=== PATIENT | male | born 1970 | race Caucasian/White ===

== ENCOUNTER → 2018-07-06 | Outpatient (CLI) | payer BC ==
--- NOTE | 2018-07-07 13:10 | ECHOF ---
Referral Reason:R07.9 chest pain MEASUREMENTS -------- HEIGHT: 175.3 cm WEIGHT: 76.2 kg BP: 114/77 RVIDd: 2.8 cm (< 3.3) IVSd: 1.0 cm (0.6 - 1.1) LVIDd: 4.4 cm (3.9 - 5.3) LVPWd: 1.0 cm (0.6 - 1.1) IVSs: 1.4 cm LVIDs: 3.0 cm LVPWs: 1.5 cm LA Diam: 3.1 cm (2.7 - 3.8) LAESV Index (A-L): 20.98 ml/m Ao Diam: 2.8 cm (2.0 - 3.7) AV Cusp: 2.3 cm (1.5 - 2.6) EPSS: 0.2 cm MV E Chandler: 0.64 m/s MV DecT: 205 ms MV A Chandler: 0.46 m/s MV E/A Ratio: 1.38 MV EF SLOPE: 98.02 mm/s (70 - 150) MV EXCURSION: 2.01 cm (> 18.000) FINDINGS -------- Sinus rhythm. This was a technically excellent study. The left ventricular size is normal. Left ventricular wall thickness is normal. Overall left vent ricular systolic function is normal with, an EF between 60 - 65 %. The right ventricle is normal in size. Normal LA size by volume 22+/-6 ml/m2. The right atrium is normal in size. The aortic valve is trileaflet and appears structurally normal. There is trace mitral regurgitation. The tricuspid valve appears structurally normal. Trace/mild (physiologic) pulmonic regurgitation. The aortic root size is normal. Normal inferior vena cava with normal inspiratory collapse consistent with estimated right atrial pre ssure of 5 mmHg. There is no pericardial effusion. CONCLUSIONS -------- 1. Sinus rhythm. 2. This was a technically excellent study. 3. The left ventricular size is normal. 4. Left ventricular wall thickness is normal. 5. Overall left ventricular systolic function is normal with, an EF between 60 - 65 %. 6. The right ventricle is normal in size. 7. Normal LA size by volume 22+/-6 ml/m2. 8. The right atrium is normal in size. 9. The aortic valve is trileaflet and appears structurally normal. 10. There is trace mitral regurgitation. 11. The tricuspid valve appears structurally normal. 12. Trace/mild (physiologic) pulmonic regurgitation. 13. The aortic root size is normal. 14. Normal inferior vena cava with normal inspiratory collapse consistent with estimated right atrial pressure of 5 mmHg. 15. There is no pericardial effusion. KILN TESTER: LORENE Herron
--- NOTE | 2018-07-08 11:25 | EST ---
EXERCISE STRESS DATE OF SERVICE: 07/06/2018 AGE: 47 SEX: Male HT: 5'9" WT: 168 pounds PROTOCOL: Anand STAGE: IV DURATION OF EXERCISE: 13 minutes HEART RATE REST: 63 BLOOD PRESSURE REST: 114/77 MAXIMUM HEART RATE ACHIEVED: 153 MAXIMUM BLOOD PRESSURE: 148/71 85% MPHR: 148 100% MPHR: 174 METS: 13.5 INDICATIONS: Chest pain. CLINICAL INFORMATION: The patient was exercised for a total period of 13 minutes. A peak heart rate of 153 was achieved. Maximum blood pressure of 148/71 mmHg was noted. Resting EKG shows normal sinus rhythm with normal [place] interval and QRS duration and normal ST-T waves. At the peak exercise, about to [address]-segment depression is noted without any symptoms of anginal pain. In the immediate post exercise period upsloping ST segments are noted. FINAL IMPRESSION: 1. This exercise test shows about [address]-segment depression at the peak exercise with immediate resolution in the postexercise. These changes are equivocal. Further evaluation with either stress echocardiographic study or nuclear study is suggested. 2. Patient's exercise tolerance is normal. 3. Occasional PVCs were noted. MMODL / IJN: [id number] /
== END | disposition home or self-care (01) ==
LOC: RADNMMAIN 10:24
PROVIDERS: ATTEND Family Medicine
DX: R94.39 Abnormal result of other cardiovascular function study (principal)
CPT/HCPCS: 93017; 93306

== ENCOUNTER → 2023-02-09 | Outpatient (CLI) | payer BC ==
--- NOTE | 2023-02-09 10:55 | CA ---
Exercise Stress Test Report Name: Sajan Ricks Exam Date: 02/09/2023 08:48 Exam Location: [place] Stress Ht (in): 68 Wt (lb): 173 BSA: 1.92 Ordering Phys: Justyn Gilbert DO Referring Phys: JUSTYN GILBERT,, Technologist: Christiano Belle Age: 52 Gender: M : 1970 Procedure CPT: Indications: R07.9 ICD-10 Codes: Patient History: Family history of heart disease Medications: Meds past 24 hrs: Pretest Chest Pain: STRESS TEST Anand Protocol Exercise Duration (min:sec): 18:[address] Depressions (mm): 1 Angina Score: 0 Sanders Score: 13 Resting HR (bpm): 70 Peak HR (bpm): 164 Resting BP (mmHg): 126 / 81 Peak BP (mmHg): / 95 MPHR: 169 Target HR: 144 % MPHR: 97 METS: 17.1 Total Dose: Peak Dose: Atropine: Double Product: BP Response: Stress Termination: Reached target heart rate Stress Symptoms: No chest pain or symptoms Stress Summary: The patient's target heart rate was achieved, The hemodynamic response to exercise was normal ECG ANALYSIS Resting ECG: Sinus rhythm. Normal conduction. No arrhythmias. Normal repolarization. Stress EC mm ST segment depression at peak exercise that resolved in recovery CONCLUSIONS Patient falls into low-risk group (DTS >= +5). This associates the patient with an annual CV mortality <= 0.5%. 1. Excellent exercise tolerance 2. Mildly positive echocardiographic stress testing with [address] segment depression at peak exercise that resolved rapidly in recovery 3. If clinically indicated an imaging stress test will be helpful Dr. Summer Abbasi MD (Electronically Signed) Final Date: 09 February 2023 10:54
== END | disposition home or self-care (01) ==
LOC: RADNMMAIN 08:23
PROVIDERS: ATTEND Family Medicine
DX: R07.89 Other chest pain (principal); Z82.49 Family history of ischemic heart disease and other diseases of the circulatory system
CPT/HCPCS: 93017

== ENCOUNTER → 2023-03-30 | Outpatient (CLI) | payer BC ==
--- NOTE | 2023-03-31 07:40 | CA ---
Transthoracic Echo Report Name: Sajan Ricks Age: 52 Gender: M : 1970 Exam Date: 03/30/2023 15:55 Exam Location: [facility] Ht (in): 68 Wt (lb): 170 Ordering Physician: Justyn Anguiano DO Attending/Referring Phys: Latoya Cifuentes NPC Hand Decorator Griselda Ivey RDCS Procedure CPT: Indications: R07.9 CHEST PAIN, UNSPECIFIED Cardiac Hx: Technical Quality: Excellent Contrast 1: Total Dose (mL): Contrast 2: Total Dose (mL): MEASUREMENTS (Male / Female) Normal Values 2D ECHO LV Diastolic Diameter PLAX 4.3 cm 4.2 - 5.9 / 3.9 - 5.3 cm LV Systolic Diameter PLAX 2.9 cm IVS Diastolic Thickness 1.0 cm 0.6 - 1.0 / 0.6 - 0.9 cm LVPW Diastolic Thickness 1.0 cm 0.6 - 1.0 / 0.6 - 0.9 cm LV Relative Wall Thickness 0.5 RV Internal Dim ED PLAX 3.0 cm LA Systolic Diameter LX 3.5 cm 3.0 - 4.0 / 2.7 - 3.8 cm LV Diastolic Volume MOD 4C 128.0 cm??? LV Systolic Volume MOD 4C 39.3 cm??? LV Ejection Fraction MOD 4C 69.3 % LV Cardiac Index MOD 4C 2704.1 cm???/min???m??? LV Diastolic Length 4C 7.8 cm LV Systolic Length 4C 6.1 cm LA Volume 67.0 cm??? 18 - 58 / 22 - 52 cm??? M-MODE Aortic Root Diameter MM 2.8 cm MV E Point Septal Separation 0.5 cm AV Cusp Separation MM 2.0 cm DOPPLER AV Peak Velocity 127.3 cm/s AV Peak Gradient 6.5 mmHg MV Area PHT 3.9 cm??? Mitral E Point Velocity 106.0 cm/s Mitral A Point Velocity 52.3 cm/s Mitral E to A Ratio 2.0 MV Deceleration Time 194.0 ms MV E' Velocity 11.4 cm/s Mitral E to MV E' Ratio 9.3 TR Peak Velocity 244.0 cm/s TR Peak Gradient 23.8 mmHg FINDINGS Left Ventricle Left ventricular ejection fraction is estimated at 55-60 %. Left ventricular cavity size normal. Left ventricular wall thickness normal.normal left ventricular wall motion. False chordae in the left ventricle (normal variant). Right Ventricle Normal right ventricular size. Right ventricular systolic pressure within normal limits. Right Atrium Normal right atrial size. Left Atrium Mildly increased left atrial volume. Mildly increased left atrial area. Mitral Valve Structurally normal mitral valve. Mild mitral regurgitation. Aortic Valve Trileaflet aortic valve. No aortic valve stenosis or regurgitation. Tricuspid Valve Structurally normal tricuspid valve. mild tricuspid regurgitation. Pulmonic Valve Structurally normal pulmonic valve. No pulmonic regurgitation. Pericardium No pericardial effusion. Aorta Normal size aortic root and proximal ascending aorta. CONCLUSIONS 1. Normal left ventricle size and systolic function 2. Mild mitral and tricuspid regurgitation Previewed by: Dr. Summer Abbasi MD (Electronically Signed) Final Date: 31 March 2023 07:39
== END | disposition home or self-care (01) ==
LOC: RADECHMAIN 15:29
PROVIDERS: ATTEND Family Medicine
DX: I08.1 Rheumatic disorders of both mitral and tricuspid valves (principal); R07.9 Chest pain, unspecified
CPT/HCPCS: 93306